=== PATIENT | female | born 1935 | race Hispanic/Latino ===

== ENCOUNTER 2017-01-14 00:24 | Inpatient (IN) | payer MEDICAID, SELFPAY ==
[2017-01-14] MEDS ORDERED: cloNIDine 0.1 MG TAB ONE (02:12)
[2017-01-14 02:30] LABS: #Lymphocytes 1.9 thou/uL (1.20-3.40); #Monocytes 0.5 thou/uL (0.11-0.59); #Neutrophils 7.7 thou/uL (1.40-6.50); %Basophils 0.5 % (0.0-1.0); %Eosinophils 0.5 % (0.0-10.0); %Lymphocytes 18.5 % (21.0-51.0); %Monocytes 4.6 % (0.0-10.0); Mean Platelet Volume 7.7 fL (7.4-10.4); Red Blood Cell (RBC) Count 4.23 mill/uL (4.20-5.40); White Blood Cell (WBC) Count 10.1 thou/uL (4.8-10.8)
[2017-01-14 02:52] LABS: ALT (SGPT) 11 U/L (8-55); AST (SGOT) 17 U/L (5-34); Alkaline Phosphatase 148 U/L (40-150); Anion Gap 9 mmol/L (10-20); BUN (Urea Nitrogen) 11 mg/dL (9.8-20.1); Bilirubin, Total 0.6 mg/dL (0.2-1.2); Calc. Creatinine Clearance 0 mL/min (70-130); Calcium 9.4 mg/dL (7.8-10.44); Carbon Dioxide 26 mmol/L (23-31); Chloride 97 mmol/L (98-107); Estimated GFR-MDRD Greater than 90; Globulin 3.5 g/dL (2.4-3.5); Lipase 9 U/L (8-78); Protein, Total 7.2 g/dL (6.0-8.3)
[2017-01-14 02:56] LABS: Troponin I 0.013 ng/mL (< 0.028)
[2017-01-14] MEDS ORDERED: Ondansetron HCl/PF 4 MG/2 ML Vial ONE (03:45)
[2017-01-14] MEDS ORDERED: niCARdipine 20MG In NaCl 20 MG/200 ML BAG ONE (04:16)
[2017-01-14] MEDS ORDERED: Nitroglycerin 2% Ointment 1 INCH/1 GM Packet ONE (04:16)
[2017-01-14] MEDS ORDERED: Furosemide 40 MG/4 ML VIAL ONE (04:16)
[2017-01-14 05:23] LABS: Bilirubin Negative (Negative); Blood, Urine Negative (Negative); Glucose, Urine (Dipstick) Negative (Negative); Ketone, Urine Negative (Negative); Nitrite Negative (Negative); Protein, Urine (Dipstick) Trace mg/dL (Neg-Trace); Urobilinogen 0.2 mg/dL (0.2-1.0)
[2017-01-14] MEDS ORDERED: Acetaminophen 325 MG TAB PO PRN (05:39)
[2017-01-14] MEDS ORDERED: Ondansetron HCl/PF 4 MG/2 ML Vial IVP PRN ×2 (05:39→05:44)
[2017-01-14] MEDS ORDERED: Ondansetron ODT 4 MG TAB SL PRN (05:39)
[2017-01-14] MEDS ORDERED: Benzonatate 100 MG CAP PO PRN (05:44)
[2017-01-14] MEDS ORDERED: Calcium Carbonate 500 MG ChewTAB PO PRN (05:44)
[2017-01-14] MEDS ORDERED: HYDROcodone/Acetaminophen 5/325 mg Tablet PO PRN (05:44)
[2017-01-14] MEDS ORDERED: guaiFENesin/Codeine Phosphate 200 mg/20 mg 10 ml UD Cup PO PRN (05:44)
--- NOTE | 2017-01-14 05:47 | HP ---
CHIEF COMPLAINT: Cough for about a week with whitish yellowish sputum production and elevated blood pressure. HISTORY OF PRESENT ILLNESS: This is a 81-year-old pleasant lady who was apparently in her usual sta te of health, had a cough with some whitish yellowish sputum production which was there for about 1 week. She was treating herself with some cough medication which she bought at the [employer] and was not getting any better. The patient on morning at 2:00 a.m., had a coughing spell whic h made her a little dizzy for a minute and then she went back to sleep. The patient was doing well on for the rest of the day when in the evening they decided to check the blood pressure, it was extremely high in the 200s and had another dizzy spell. The family decided to bring the patien t to the hospital. The patient did not have any chest pain, shortness of breath or focal neurologic al deficits at any point. She was quite active during this whole week. The patient denies any feve r or chills. The patient recently got a flu shot 3 weeks back. The patient is going to be admitted to the ICU for control of the high blood pressure. PAST MEDICAL HISTORY: High blood pressure, high cholesterol controlled by diet and exercise. ALLERGIES: No known drug allergies. MEDICATIONS: Losartan 50 mg p.o. daily. SOCIAL HISTORY: Does not smoke, drink or do recreational drugs. PAST SURGICAL HISTORY: None. FAMILY HISTORY: Negative for diabetes and hypertension. REVIEW OF SYSTEMS: Significant for no fever, no chills, no headache, no appetite changes. No cough , no chest pain, diarrhea, dysuria or polyuria. No memory or mood changes. No neck pain. Positive for dizziness. PHYSICAL EXAMINATION: VITAL SIGNS: Blood pressure is 212/92, heart rate is 72, respirations 18, temperature afebrile. GENERAL: Patient is lying in bed in no apparent distress. HEENT: Atraumatic and normocephalic. Pupils equally round, react to light. Extraocular movements intact. Mucous membranes moist. NECK: No JVD. CHEST: Breath sounds are heard. There are no rales or rhonchi. HEART: S1, S2, no murmurs or gallops. ABDOMEN: Soft, obese. EXTREMITIES: No cyanosis, clubbing or edema. Distal pulses present. NEUROLOGIC: Alert, awake, oriented. No cranial nerve deficits. No sensorimotor deficits. Finger- to-nose test is within normal limits. SKIN: Warm and dry. LABORATORY DATA: WBC count is 10, hemoglobin is 13, potassium is 3.9, creatinine 0.6, troponin 0.01 3, lipase is 9. UA is pending. MRI of the brain is pending. ASSESSMENT AND PLAN: 1. Hypertensive urgency with 2 episodes of dizziness. We will keep the patient in ICU, put the pat ient on Cardene drip. We will see how the IV Lasix works. The patient also got clonidine 0.1 mg in the ER with no good response. We will continue the losartan 50 mg p.o. daily and see how the patie nt is doing and optimize blood pressure medications. 2. Viral bronchitis with intractable cough. This could be very well the cause of the dizzy spell a s the patient describes that the dizzy spell occurred after the coughing episode. We will send sput um for culture and do chest x-ray. At this point, the patient already got a flu shot. We will hold antibiotics for now. 3. Hyponatremia. Exact etiology unknown right now. We will see how the patient does after the IV Lasix. The patient does not appear to be volume overloaded. 4. Hyperlipidemia, controlled with diet and exercise. 5. Sequential compression devices for deep venous thrombosis prophylaxis. 6. CODE STATUS: Patient is full code. I will follow the labs and do the need for.
[2017-01-14 05:50] VITALS: BMI 22.6
[2017-01-14 05:52] LABS: Troponin I Less than 0.010 ng/mL (< 0.028)
[2017-01-14] MEDS: Acetaminophen 325 MG TAB PO PRN ×2 (06:46→22:03)
[2017-01-14] MEDS ORDERED: hydrALAZINE 20 MG/ML VIAL SLOW IVP PRN (07:25)
[2017-01-14] MEDS ORDERED: cloNIDine 0.1 MG TAB PO PRN (07:26)
[2017-01-14] MEDS ORDERED: Amlodipine 5 MG TAB PO SCH (07:30)
[2017-01-14] MEDS: Docusate 100 MG CAP PO SCH ×2 (07:42→20:28)
[2017-01-14 08:39] LABS: Troponin I 0.015 ng/mL (< 0.028)
[2017-01-14] MEDS ORDERED: FLU VACC TS2017-18 (>65YR) 0.5 ML SYRINGE IM ONE (09:00)
[2017-01-14] MEDS ORDERED: Losartan Potassium 25 MG TAB PO SCH (09:00)
--- NOTE | 2017-01-14 09:38 | RAD ---
1 VIEW CHEST: Date: 01/14/17 HISTORY: Cough. COMPARISON: None. FINDINGS: Atherosclerosis of aorta. Normal cardiac silhouette. Pulmonary vessels and hilum are normal. Costoph renic angles are clear. Hyperinflation. No pneumothorax or osseous abnormalities. IMPRESSION: 1. Hyperinflation. Chronic changes. 2. Atherosclerosis. POS: [facility]
--- NOTE | 2017-01-14 15:43 | MRI ---
HISTORY: 81-year-old with history of dizziness. History of hypertension. Cough for one week. Noncontrast enhanced MRI images of the brain is obtained. Images demonstrate mild cortical atrophy and deep white matter ischemic changes. No evidence of acut e intracranial masses, hemorrhages or strokes or contusions seen. No evidence of areas of diffusion restriction seen. Normal flow voids seen in the major intracranial vessels. IMPRESSION: Unremarkable noncontrast enhanced MRI images of the brain. POS: [facility]
[2017-01-14] MEDS: Losartan Potassium 25 MG TAB PO SCH (20:28)
--- NOTE | 2017-01-14 21:31 | PDOC.EVN ---
Event Note - Event Note Event Note: Patient seen and examined earlier today. Will cont to monitor. Losartan restarted. Amlodipine added.
[2017-01-15 06:14] LABS: #Eosinphils 0.1 thou/uL (0.0-0.7); #Lymphocytes 2.4 thou/uL (1.20-3.40); #Monocytes 0.6 thou/uL (0.11-0.59); #Neutrophils 5.4 thou/uL (1.40-6.50); %Basophils 0.4 % (0.0-1.0); %Eosinophils 1.7 % (0.0-10.0); %Lymphocytes 27.6 % (21.0-51.0); %Monocytes 6.6 % (0.0-10.0); Hematocrit 37.3 % (36.0-47.0); Mean Platelet Volume 7.6 fL (7.4-10.4); White Blood Cell (WBC) Count 8.5 thou/uL (4.8-10.8)
[2017-01-15 06:37] LABS: Anion Gap 13 mmol/L (10-20); BUN (Urea Nitrogen) 14 mg/dL (9.8-20.1); Calc. Creatinine Clearance 59 mL/min (70-130); Calcium 8.7 mg/dL (7.8-10.44); Carbon Dioxide 24 mmol/L (23-31); Chloride 91 mmol/L (98-107); Estimated GFR-MDRD 90
[2017-01-15] MEDS: Amlodipine 5 MG TAB PO SCH (08:51)
[2017-01-15] MEDS: Losartan Potassium 25 MG TAB PO SCH ×2 (08:51→20:28)
[2017-01-15] MEDS: Docusate 100 MG CAP PO SCH ×2 (08:52→20:29)
[2017-01-15 11:39] LABS: Bacteria/HPF 2+ HPF (None Seen); Hyaline Casts/LPF NONE SEEN LPF (0-3 Hyaline); RBC/HPF 0-3 HPF (0-3)
[2017-01-15 11:56] LABS: Osmolality, Urine 394 mOsm/kg (300-900)
[2017-01-15] MEDS ORDERED: Nitroglycerin 0.4 MG TAB (25 Tab Bottle) PO PRN (11:58)
[2017-01-15] MEDS ORDERED: Senokot 8.6 MG TAB PO PRN (11:58)
[2017-01-15] MEDS ORDERED: guaiFENesin ER 600 MG TAB PO SCH (12:00)
[2017-01-15 12:03] LABS: Sodium, Urine 27 mmol/L (Not Available)
--- NOTE | 2017-01-15 12:04 | PDOC.PN ---
- Subjective Encounter Start Date: 01/15/17 Encounter Start Time: 11:00 Patient seen and examined. Productive cough. No overnight events - Objective Resuscitation Status: Resuscitation Status FULL:Full Resuscitation MAR Reviewed: Yes Vital Signs & Weight: Vital Signs (12 hours) Temp Pulse Resp BP BP Pulse Ox 01/15/17 08:51 75 143/66 H 01/15/17 08:00 98.2 F 69 18 143/66 H 97 01/15/17 07:45 98.8 F 75 20 97 01/15/17 04:00 98.8 F 75 20 131/61 94 L Weight Admit Weight 115 lb 15.41 oz Weight 115 lb Most Recent Monitor Data Heart Rate from ECG 60 NIBP 145/54 NIBP BP-Mean 73 Respiration from ECG 14 SpO2 100 I&O: 01/14/17 01/15/17 01/16/17 06:59 06:59 06:59 Intake Total 52 1245 240 Output Total 1750 Balance 52 -505 240 Result Diagrams: 01/15/17 05:39 01/15/17 08:54 Radiology Reviewed by me: Yes (MRI - neg, CXR - no infiltrate) EKG Reviewed by me: Yes (Tele SR) Phys Exam - Physical Examination Constitutional: NAD Respiratory: no wheezing, no rales Symmetrical, scat rhonchi Cardiovascular: RRR, no rub no heaves/pulsation Gastrointestinal: soft, non-tender, positive bowel sounds Musculoskeletal: no edema, pulses present Neurological: non-focal, normal sensation, moves all 4 limbs Psychiatric: normal affect, A&O x 3 Dx/Plan (1) Hypertensive emergency Code(s): I16.1 - HYPERTENSIVE EMERGENCY Status: Acute Comment: Off Nicardipine drip (2) Dizziness, nonspecific Code(s): R42 - DIZZINESS AND GIDDINESS Status: Acute Comment: prob due to # 1 (3) Hyponatremia with decreased serum osmolality Code(s): E87.1 - HYPO-OSMOLALITY AND HYPONATREMIA Status: Acute Comment: ? SIADH (4) Acute bronchitis Code(s): J20.9 - ACUTE BRONCHITIS, UNSPECIFIED Status: Acute Qualifiers: Bronchitis organism: unspecified organism Qualified Code(s): J20.9 - Acute bronchitis, unspecified (5) Other issues per H&P - Plan cont current plan of care, plan discussed w/ family, out of bed/ambulate, DVT proph w/heparin, DVT proph w/SCDs * Cont home dose of Losartan * Amlodipine added yesterday * Add Omnicef with mucinex and PRN nebs * Send serum and urine osmolarity, urine sodium, TSH, uric acid and Cortisol * Consult Nephrology * AM labs * Repeat sodium later today Review of Systems - Review of Systems Respiratory: negative: Cough, Dry, Shortness of Breath, Hemoptysis, SOB with Excertion, Pleuritic Pain, Sputum, Wheezing Cardiovascular: negative: Chest Pain, Palpitations, Orthopnea, Paroxysmal Noc. Dyspnea, Edema, Light Headedness, Other Gastrointestinal: negative: Nausea, Vomiting, Abdominal Pain, Diarrhea, Constipation, Melena, Hematochezia, Other - Medications/Allergies Allergies/Adverse Reactions: Allergies Allergy/AdvReac Type Severity Reaction Status Date / Time No Known Drug Allergies Allergy Verified 01/14/17 06:40 Medications: Current Medications Acetaminophen (Tylenol) 650 mg PO Q4H PRN PRN Reason: Headache/Fever or Pain Last Admin: 01/14/17 22:03 Dose: 650 mg Amlodipine Besylate (Norvasc) 5 mg PO DAILY [facility] Last Admin: 01/15/17 08:51 Dose: 5 mg Benzonatate (Tessalon) 100 mg PO TID PRN PRN Reason: Cough Calcium Carbonate (Tums) 1,000 mg PO Q4H PRN PRN Reason: Heartburn or Indigestion Clonidine (Catapres) 0.1 mg PO Q4H PRN PRN Reason: Systolic BP > 180 Docusate Sodium (Colace) 100 mg PO BID [facility] Last Admin: 01/15/17 08:52 Dose: 100 mg Famotidine (Pepcid) 20 mg PO BID [facility] Guaifenesin (Mucinex) 600 mg PO Q12HR [facility] Guaifenesin (Mucinex) 600 mg PO ONE [facility] Guaifenesin/Codeine Phosphate (Robitussin Ac) 10 ml PO Q6H PRN PRN Reason: Cough Hydralazine HCl (Apresoline) 10 mg SLOW IVP Q4H PRN PRN Reason: SBP Greater Than 180 Losartan Potassium (Cozaar) 50 mg PO BID [facility] Last Admin: 01/15/17 08:51 Dose: 50 mg Nitroglycerin (Nitrostat) 0.4 mg PO Q5MIN PRN PRN Reason: Chest Pain Ondansetron HCl (Zofran) 4 mg IVP Q6H PRN PRN Reason: Nausea/Vomiting Senna (Senokot) 2 tab PO HSPRN PRN PRN Reason: Constipation
[2017-01-15] MEDS ORDERED: Cefdinir 300 MG CAP PO SCH (12:15)
[2017-01-15 12:31] LABS: Anion Gap 11 mmol/L (10-20); BUN (Urea Nitrogen) 14 mg/dL (9.8-20.1); Calc. Creatinine Clearance 55 mL/min (70-130); Calcium 8.9 mg/dL (7.8-10.44); Carbon Dioxide 25 mmol/L (23-31); Chloride 92 mmol/L (98-107); Estimated GFR-MDRD 83
--- NOTE | 2017-01-15 12:41 | PDOC.EVN ---
Event Note - Event Note Event Note: UA showed WBC with bacteria, Will add urine culture.
--- NOTE | 2017-01-15 14:46 | CON ---
DATE OF CONSULTATION: 01/15/2017 NEPHROLOGY CONSULTATION REASON FOR CONSULTATION: Hyponatremia. HISTORY OF PRESENT ILLNESS: This is a very pleasant 81-year-old female who presented to the [facility] with elevated blood pressure, was noted to have sodium of 128, which decreased to 124 today, so I was consulted. The patient denies headache, numbness, tingling or weakness. Denies any nausea, vom iting or chest pain. The patient is also been drinking excessive fluids. PAST MEDICAL HISTORY: Significant for high blood pressure and high cholesterol. ALLERGIES: Reviewed. HOME MEDICATIONS: Reviewed. SOCIAL HISTORY: No alcohol or drug use. FAMILY HISTORY: Negative for ESRD. REVIEW OF SYSTEMS: A 15-point review of systems was performed and was negative except for positives noted above. GENERAL: Weakness- HEAD: Headache- NECK: No swelling or lumps. NOSE: No epistaxis or discharge. EYES: No diplopia or pain. RESPIRATORY: Dyspnea- CARDIOVASCULAR: Chest pain- GASTROINTESTINAL: Nausea- /LAND LEVELER: Hematuria- MUSCULOSKELETAL: No joint pain. NEUROPSYCHIATIC SYSTEMS: No suicidal ideation. No ideation. SKIN: Denies any rash or ulcer. CONSTITUTIONAL: No fever or chills. PHYSICAL EXAMINATION: GENERAL: On examination, patient is awake, alert. VITAL SIGNS: Afebrile, pulse 61, breathing at 16, blood pressure 131/61. GENERAL APPEARANCE AND MENTAL STATUS: Fair. HEAD/NECK: Normocephalic. Atraumatic. EYES: EOMI. No deformity. EARS: Clear. No ulcers. NOSE: Intact. No lesions. MOUTH: Clear. No discharge. THROAT: Clear. No exudate. LUNGS: Clear. No crackles. CARDIAC: S1, S2. No rub. ABDOMEN: Benign. BS+. GENITALIA/RECTUM: Downs absent. BACK/EXTREMITIES: Edema 0+ Ulcer- NEUROLOGICAL: Alert and motor intact. SKIN: Rash- Bruise- LYMPHATICS: Edema- Ulcer- LABORATORY DATA: Show sodium 124. Serum osmolality 263. ASSESSMENT AND RECOMMENDATIONS: 1. 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 Recommend fluid restriction to 1200 mL. 2. Anemia, stable. 3. Hypertension, stable. 4. Chronic kidney disease stage 1, stable.
[2017-01-15 18:26] LABS: Anion Gap 11 mmol/L (10-20); BUN (Urea Nitrogen) 12 mg/dL (9.8-20.1); Calc. Creatinine Clearance 58 mL/min (70-130); Calcium 9.1 mg/dL (7.8-10.44); Carbon Dioxide 25 mmol/L (23-31); Chloride 94 mmol/L (98-107); Estimated GFR-MDRD 88
[2017-01-15] MEDS: Heparin 5,000 UNITS/ML VIAL SC SCH (20:29)
[2017-01-15] MEDS: Cefdinir 300 MG CAP PO SCH (20:29)
[2017-01-15] MEDS: Famotidine 20 MG TAB PO SCH (20:29)
[2017-01-15] MEDS: guaiFENesin ER 600 MG TAB PO SCH (20:29)
[2017-01-16 05:29] LABS: Anion Gap 11 mmol/L (10-20); BUN (Urea Nitrogen) 14 mg/dL (9.8-20.1); Calc. Creatinine Clearance 60 mL/min (70-130); Calcium 9.1 mg/dL (7.8-10.44); Carbon Dioxide 23 mmol/L (23-31); Chloride 98 mmol/L (98-107); Estimated GFR-MDRD Greater than 90; Magnesium 2.3 mg/dL (1.6-2.6); Phosphorus 3.1 mg/dL (2.3-4.7)
[2017-01-16] MEDS: Docusate 100 MG CAP PO SCH (08:26)
[2017-01-16] MEDS: Amlodipine 5 MG TAB PO SCH (08:26)
[2017-01-16] MEDS: Famotidine 20 MG TAB PO SCH (08:26)
[2017-01-16] MEDS: Losartan Potassium 25 MG TAB PO SCH (08:26)
[2017-01-16] MEDS: Cefdinir 300 MG CAP PO SCH (08:26)
[2017-01-16] MEDS: guaiFENesin ER 600 MG TAB PO SCH (08:26)
[2017-01-16] MEDS: Heparin 5,000 UNITS/ML VIAL SC SCH (08:26)
--- NOTE | 2017-01-16 09:53 | PDOC.PN ---
- Subjective Encounter Start Date: 01/16/17 Encounter Start Time: 09:51 Patient seen at bedside. No overnight events, no chest pain, no SOB, cough has improved. - Objective Resuscitation Status: Resuscitation Status FULL:Full Resuscitation Vital Signs & Weight: Vital Signs (12 hours) Temp Pulse Resp BP BP Pulse Ox 01/16/17 08:26 71 01/16/17 08:00 97.8 F 71 16 94 L 01/16/17 07:53 97.8 F 71 16 135/61 94 L 01/16/17 04:51 97.1 F L 66 16 165/68 H 95 Weight Admit Weight 115 lb 15.41 oz Weight 115 lb Most Recent Monitor Data Heart Rate from ECG 60 NIBP 145/54 NIBP BP-Mean 73 Respiration from ECG 14 SpO2 100 I&O: 01/15/17 01/16/17 01/17/17 06:59 06:59 06:59 Intake Total 1245 1320 Output Total 1750 150 Balance -505 1170 Result Diagrams: 01/15/17 05:39 01/16/17 04:55 Phys Exam - Physical Examination Constitutional: NAD HEENT: moist MMs Neck: no JVD Respiratory: no rales Cardiovascular: RRR Gastrointestinal: soft Musculoskeletal: pulses present Neurological: moves all 4 limbs Psychiatric: A&O x 3 Dx/Plan (1) Acute bronchitis Code(s): J20.9 - ACUTE BRONCHITIS, UNSPECIFIED Status: Acute Qualifiers: Bronchitis organism: unspecified organism Qualified Code(s): J20.9 - Acute bronchitis, unspecified (2) Dizziness, nonspecific Code(s): R42 - DIZZINESS AND GIDDINESS Status: Acute Comment: prob due to # 1 (3) Hypertensive emergency Code(s): I16.1 - HYPERTENSIVE EMERGENCY Status: Resolved (4) Hyponatremia with decreased serum osmolality Code(s): E87.1 - HYPO-OSMOLALITY AND HYPONATREMIA Status: Acute Comment: ? SIADH - Plan cont current plan of care, plan discussed w/ family, out of bed/ambulate * Increase Amlodipine to 10 mg PO Daily. * Continue with Losartan * Sodium has improved. Continue with fluid restriction * Cefdinir. * F/U Nephrology recommendations. * Possible D/C today
[2017-01-16] MEDS ORDERED: Amlodipine 5 MG TAB PO SCH (10:30)
[2017-01-16 11:40] VITALS: BP 110/59; TEMP 98.9
--- NOTE | 2017-01-16 14:18 | DIS ---
DATE OF ADMISSION: 01/14/2017 DATE OF DISCHARGE: 01/16/2017 DISCHARGE DISPOSITION: Home. DISCHARGE FOLLOWUP: 1. With [facility]. 2. With [address]. Raza next week after she gets blood work on 01/17/2017. DISCHARGE DIAGNOSES: 1. Dizziness, secondary to hypertensive urgency and hyponatremia. 2. Hypertensive urgency. 3. Hyponatremia, secondary to syndrome of inappropriate antidiuretic hormone secretion. 4. Hyperlipidemia - diet and exercise controlled. DISCHARGE MEDICATIONS: 1. Losartan 50 mg p.o. b.i.d. 2. [place] 3 capsules. 3. Vitamin B12 supplements. 4. Norvasc 10 mg p.o. daily. This is new. 5. Omnicef 300 mg p.o. b.i.d. for the next 3 days. INPATIENT CONSULTATIONS: Dr. Raza, Nephrology. PROCEDURES: None. INPATIENT RADIOGRAPHIC EXAMINATIONS: 1. MRI of the brain, which revealed unremarkable [id number] image of the brain. 2. Chest x-ray, which revealed hyperinflation with chronic changes. BRIEF HOSPITAL COURSE: Ms. Britni Hopkins is a 81-year-old female, who presented for a cough approxi mately one week prior to admission. She stated she felt dizzy and then presented to the emergency r oom where she was noted to have a blood pressure in the systolics more than 200. She was then subse quently admitted to the critical care unit where she was transiently placed on nicardipine drip. He r blood pressure was appropriately reduced, and she was then subsequently transferred to the telemet ry floor. The patient did have an acute drop in her sodium. It dropped down to 124. Nephrology wa s consulted, who stated her hyponatremia was most likely secondary to syndrome of inappropriate anti diuretic hormone secretion. She was then placed on a fluid restriction. Her sodium has increased b ack to 128. Her blood pressure has improved. She was started on Norvasc 10 mg p.o. daily and will continue this as an outpatient. Her symptoms overall have improved. She is no longer dizzy. She h as been walking without any difficulty. No further chest pain and she states that her cough has imp roved. She is clinically appropriate for discharge home and discharged home with medications above. She will require a repeat basic metabolic panel on 01/17/2017 as well as a followup at the nephrol ogist's office. Information has been given for this. She is clinically appropriate for discharge h ome and was discharged in stable condition. DISCHARGE DIET: Heart healthy. ACTIVITY: As tolerated. RESTRICTIONS: Fluid restriction 1.5 liters. CODE STATUS: FULL CODE. ALLERGIES: No known drug allergies. DISCHARGE FOLLOWUP: 1. With [facility]. 2. With [address]. Raza as an outpatient later this week. I have explained all of this to the patient at bedside. She agrees with the plan of discharge. All questions have been answered. Total discharge time, 32 minutes.
--- NOTE | 2017-01-16 16:28 | PRG ---
DATE OF SERVICE: 01/16/2017 SUBJECTIVE: This 81-year-old female being seen for hyponatremia. The patient denies any nausea, vo miting or chest pain. PHYSICAL EXAMINATION: GENERAL: Patient is awake, alert. VITAL SIGNS: Afebrile, pulse 72, breathing at 16, blood pressure 110/59. GENERAL APPEARANCE AND MENTAL STATUS: Fair. HEAD/NECK: Normocephalic. Atraumatic. EYES: EOMI. No deformity. EARS: Clear. No ulcers. NOSE: Intact. No lesions. MOUTH: Clear. No discharge. THROAT: Clear. No exudate. LUNGS: Clear. No crackles. CARDIAC: S1, S2. No rub. ABDOMEN: Benign. BS+. GENITALIA/RECTUM: Downs absent. BACK/EXTREMITIES: Edema 0+ Ulcer-. NEUROLOGICAL: Alert and motor intact. SKIN: Rash- Bruise-. LYMPHATICS: Edema- Ulcer-. LABORATORY DATA: Hemoglobin 12.7, creatinine 0.6, sodium 124. ASSESSMENT AND RECOMMENDATIONS: Hypernatremia, improved. improved. The patient will follow up to see me in 1 day. We will have labs in the morning. The patient was advised less than 1.5 lit ers of fluids per day.
[2017-01-17] MEDS ORDERED: Amlodipine 5 MG TAB PO SCH (09:00)
--- NOTE | 2017-01-17 11:40 | EKG ---
Test Reason : Blood Pressure : / mmHG Vent. Rate : 072 BPM Atrial Rate : 072 BPM P-R Int : 146 ms QRS Dur : 156 ms QT Int : 428 ms P-R-T Axes : 034 074 034 degrees QTc Int : 468 ms Normal sinus rhythm Right bundle branch block Abnormal ECG When compared with ECG of 14-JAN-2017 01:06, (Unconfirmed) No significant change was found Confirmed by DR. Oleksandr TAM ([id number]) on 01/17/2017 11:40:14 AM Referred By: CODY Confirmed By:DR. Oleksandr TAM
== END 2017-01-16 14:23 | disposition home or self-care (01) | DRG 645 ==
LOC: ERS 00:24 → CCU 04:03 → 2NO 14:45
PROVIDERS: ADMIT Internal Medicine; ATTEND Internal Medicine
PROC: B030ZZZ Magnetic Resonance Imaging (MRI) of Brain (ICD-10-PCS; principal; 2017-01-14)
DX: E22.2 Syndrome of inappropriate secretion of antidiuretic hormone (principal); D64.9 Anemia, unspecified; J20.9 Acute bronchitis, unspecified; I12.9 Hypertensive chronic kidney disease with stage 1 through stage 4 chronic kidney disease, or unspecified chronic kidney disease; E78.5 Hyperlipidemia, unspecified; I16.0 Hypertensive urgency; N18.1 Chronic kidney disease, stage 1
CPT/HCPCS: 36415; 70551; 71010; 80048; 80053; 81003; 81015; 82533; 82553; 83690; 83735; 83880; 83930; 83935; 84100; 84300; 84443; 84484; 84550; 85025; 87086; 90471; 90682; 90732; 93005; 93010; 94760; 96365; 96375; G0008; G0009; J1644; J1940; J2405; Q2036